=== PATIENT | female | born 1940 | race Caucasian/White ===

== ENCOUNTER 2022-10-09 15:44 | Observation (INO) | payer MEDICARE ==
[~2022-10-09] VITALS: Ht 162.6 cm; Wt 86.6 kg
[2022-10-09] VITALS (10 sets, daily range): BP systolic 141–163; BP diastolic 61–76
--- NOTE | 2022-10-09 15:44 | NUR ---
PATIENT ARRIVED TO ER VIA POV. PATIENT WHEELED TO ROOM BY NURSE. MPATIENT C/O DIFFICULTY FINDING HER WORDS WHILE TALKING WITH FRIENDS TODAY. PATIENT IS AWAKE, AKERT AND STABLE. PHYSICIAN NOTIFIED.
[2022-10-09 16:19] LABS: BASO% 0.4 % (0-3); EOS% 1.9 % (0-8); HEMATOCRIT 46.8 % (37.0-47.0); HEMOGLOBIN 15.3 g/dl (12.0-16.0); MEAN CELL VOLUME 90.2 fL CALC (80.0-100.0); MEAN CORPUSCULAR HGB 29.5 pG CALC (26.0-32.0); MEAN CORPUSCULAR HGB CONC 32.7 g/dL CAL (32.0-36.0); MONO% 6.8 % (2-13); NEUT# 4.86 thou/uL (2.00-7.15); NEUT% 64.9 % (42-76); RED BLOOD COUNT 5.19 mill/uL (4.20-5.60)
[2022-10-09 16:37] LABS: ALBUMIN 4.6 g/dL (3.2-5.0); ALKALINE PHOSPHATASE 97 u/l (38-126); BUN 16 mg/dL (8-23); BUN/CREATININE RATIO 17 (12-20 (CALC)); CALCULATED LDLCHOLESTEROL 107 mg/dL (62-129 (CALC)); CARBON DIOXIDE 28 mmol/l (22-30); CHLORIDE 100 mmol/l (95-108); CHOLESTEROL HDL RATIO 4.5 (<4.4 (CALC)); CREATININE 0.9 mg/dL (0.5-1.0); GFR FOR AFR.AMER. > 60 ML/MIN (>=60 (CALC)); GFR OTHER RACES 60 ML/MIN (>=60 (CALC)); HDL CHOLESTEROL 39 mg/dL (39.0-59.0); POTASSIUM 3.3 mmol/l (3.5-5.1); SGOT/AST 28 u/l (9-36); TOTAL CHOLESTEROL 174 mg/dl (0-199); TOTAL PROTEIN 8.1 g/dL (6.3-8.2); TRIGLYCERIDES REFLEX TO dLDL 140 mg/dl (30-149); VLDL CHOLESTROL 28 mg/dl (0-48 (CALC))
[2022-10-09 16:38] LABS: ANION GAP 11 (6-22 (CALC)); BILIRUBIN, TOTAL 0.8 mg/dL (0.02-1.3); SODIUM 136 mmol/l (137-146)
[2022-10-09 16:39] LABS: URINE BILIRUBIN - DIPSTICK NEGATIVE (NEGATIVE); URINE BLOOD DIPSTICK TRACE-INTACT (NEGATIVE); URINE COLOR YELLOW; URINE GLUCOSE - DIPSTICK NEGATIVE (NEGATIVE); URINE KETONE NEGATIVE (NEGATIVE); URINE PROTEIN - DIPSTICK NEGATIVE (NEG-TRACE); URINE UROBILINOGEN - DIPSTICK 0.2 E.U./dL (0.2)
[2022-10-09 16:40] LABS: URINE NITRITE - DIPSTICK NEGATIVE (Negative)
[2022-10-09 16:41] LABS: PROTHROMBIN TIME 10.2 SECONDS (9.0-12.5)
[2022-10-09 16:41] LABS: URINE LEUK ESTERASE SMALL (NEGATIVE)
[2022-10-09 16:51] LABS: URINE RBC 0-2 RBC/hpf (0-5); URINE SQUAMOUS EPITHELIAL CELL FEW EPI/hpf (0-FEW)
[2022-10-09] MEDS ORDERED: LEVOTHYROXIN125 MC1 PO (18:40)
[2022-10-09] MEDS ORDERED: MAXZIDE-25MG1 COMBO PO (18:41)
--- NOTE | 2022-10-09 19:24 | NUR ---
BEDSIDE REPORT TAKEN FROM RN. PT IS AWAITING A ROOM ASIGNMENT AT THIS TIME. CALL BAXTER WITHIN REACH AND PT IN NO DISTRESS.
--- NOTE | 2022-10-09 21:30 | NUR ---
REPORT RECEIVED FROM ER NURSE. PATIENT ARRIVED TO ROOM 274 AT 2120 VIA WHEELCHAIR. PATIENT ALERT AND ORIENTED AND ABLE TO MAKE NEEDS KNOWN. DENIES PAIN OR DISCOMFORT UPON ARRIVAL. ABLE TO AMBULATE INDEPENDENTLY. RESPIRATIONS EVEN AND UNLABOREED ON ROOM AIR. ORIENTED TO ROOM AND CALL LIGHT. MRI SCREENING COMPLETED. PATIENT REMOVED RINGS AND HEARING AIDS. HAS DENTURES AND WILL REMOVE THEM TOMORROW BEFORE MRI. SNACK AND BEVERAGE PROVIDED. CALL LIGHT WITHIN REACH.
[2022-10-10 04:43] VITALS: BP 124/59
[2022-10-10 05:57] LABS: BASO% 0.6 % (0-3); EOS% 2.7 % (0-8); HEMATOCRIT 45.3 % (37.0-47.0); IMMATURE GRANULOCYTES 0.2 % (0.0-5.0); LYMPH% 29.4 % (15-41); MEAN CELL VOLUME 89.7 fL CALC (80.0-100.0); MEAN CORPUSCULAR HGB 29.7 pG CALC (26.0-32.0); MEAN CORPUSCULAR HGB CONC 33.1 g/dL CAL (32.0-36.0); NEUT# 2.85 thou/uL (2.00-7.15); NEUT% 55.1 % (42-76); RED BLOOD COUNT 5.05 mill/uL (4.20-5.60); RED CELL DISTRI WIDTH 12.1 % (11.5-15.5)
[2022-10-10 06:07] LABS: ALBUMIN 3.9 g/dL (3.2-5.0); ALKALINE PHOSPHATASE 84 u/l (38-126); ANION GAP 13 (6-22 (CALC)); BILIRUBIN, TOTAL 0.7 mg/dL (0.02-1.3); BUN 15 mg/dL (8-23); BUN/CREATININE RATIO 18 (12-20 (CALC)); CARBON DIOXIDE 24 mmol/l (22-30); CHLORIDE 104 mmol/l (95-108); CREATININE 0.8 mg/dL (0.5-1.0); GFR FOR AFR.AMER. > 60 ML/MIN (>=60 (CALC)); GFR OTHER RACES > 60 ML/MIN (>=60 (CALC)); MAGNESIUM 1.8 mg/dL (1.6-2.3); POTASSIUM 3.4 mmol/l (3.5-5.1); SGOT/AST 24 u/l (9-36); SODIUM 138 mmol/l (137-146); TOTAL PROTEIN 6.6 g/dL (6.3-8.2)
[2022-10-10 06:30] VITALS: BP 138/62
--- NOTE | 2022-10-10 07:00 | NUR ---
BEDSIDE REPORT RECIEVED, WHITEBOARD UPDATED, NO S/S OF DISTRESS, OR TIA OR STROKE LIKE SYMPTOMS, PATIENT IS A & O X 3 , INDEPENDENT IN HER ROOM. PATIENT SAFETY MEASURES IN PLACE.
--- NOTE | 2022-10-10 11:13 | NUR ---
PATIENT IN ROOM, WENT FOR MRI THIS MORNING AWAITING RESLTS, NO S/S OF DISTRESS, PATIENT SAFETY MEASURES IN PLACE.
[2022-10-10 15:12] VITALS: BP 122/70
[2022-10-10] MEDS ORDERED: ASPIRIN ADULT L81 M2 PO (16:29)
--- NOTE | 2022-10-10 16:58 | NUR ---
PATIENT MRI COMPLETED, RESULTS GIVEN TO PROVIDER AND PATIENT DISCHARGED IN STABLE CONDITION. REVIEWED S/S OF A STROKE AND IMPORTANCE OF SEEKING MEDICAL ATTENTION. IV REMOVED , CATH INTACT GAUZE APPLIED AND BLEEDING STOPPED. ESCORTED PATIENT TO [facility] IN ER PARKING LOT. PATIENT LEFT IN STABLE CONDITION WITH UNDERSTANDING OF DISCHARGE INSTRUCTIONS.
== END 2022-10-10 16:52 | disposition home or self-care (01) ==
LOC: ED 15:44 → ED-I 16:43 → ED 18:57 → MS2 18:58
PROVIDERS: Family Medicine; ADMIT Internal Medicine; ATTEND Internal Medicine
DX: R47.01 Aphasia (principal); I10 Essential (primary) hypertension; E89.0 Postprocedural hypothyroidism; Z85.850 Personal history of malignant neoplasm of thyroid
CPT/HCPCS: Q9967